=== PATIENT | male | born 1950 | race Caucasian/White ===

== ENCOUNTER 2019-06-08 10:07 | Inpatient (IN) ==
[2019-06-08] MEDS ORDERED: ASPIRIN PO ONE (10:20)
[2019-06-08] MEDS ORDERED: ASPIRIN PR ONE (10:20)
--- NOTE | 2019-06-08 11:05 | Diag Imaging Result Doc PS360 ---
EXAM: CHEST-2 VIEWS INDICATION: sob TECHNIQUE: 2 views COMPARISON: 05/08/2019 FINDINGS: There is a severe airspace consolidation involving the left upper lobe and left lower lobe. There is milder airspace consolidation in the right upper lobe. This indicates pneumonia. There is no discrete pleural fluid collection or pneumothorax. Cardiac silhouette is grossly unremarkable. IMPRESSION: Bilateral multilobar pneumonia, worse on the left. Electronically signed by Mario Gunter 06/08/2019 11:03 AM
[2019-06-08 11:56] LABS: BASO# 0.01 X1000 (0.0-0.2); BASO% 0.1 % (0.0-0.8); EOS# 0.03 X1000 (0.0-0.7); EOS% 0.3 % (0.0-10.0); HEMATOCRIT 20.4 % (42.0-52.0); HEMOGLOBIN 6.7 g/dL (14.0-18.0); IMM GRAN# 0.02 X1000 (0.0-0.04); IMM GRAN% 0.2 % (0.0-0.5); LYMPH# 0.54 X1000 (1.2-3.4); LYMPH% 5.2 % (20.5-51.1); MCH 28.6 PG (27-31); MCHC 32.8 g/dL (33-37); MCV 87.2 FL (81-99); MONO# 0.64 X1000 (0.11-0.59); MONO% 6.2 % (1.7-9.3); MPV 12.4 FL (7.4-10.4); NEUT# 9.11 X1000 (1.4-6.5); PLT 170 X1000 (130-400); RBC 2.34 XMIL (4.7-6.1); RDW 14.3 % (11.5-14.5); WBC 10.35 X1000 (4.8-10.8)
[2019-06-08 11:58] LABS: INR 1.3; PROTIME 16.4 Seconds (11.0-16.0)
[2019-06-08 11:59] LABS: PTT 42.3 Seconds (22.3-41.8)
[2019-06-08] MEDS ORDERED: DOXYCYCLINE PO ONE (12:18)
[2019-06-08] MEDS ORDERED: ROCEPHIN 2 GM in NS 50 ML IV ONE ×2 (12:18→13:30)
[2019-06-08 12:19] LABS: ALB/GLOB RATIO 1.5; ALBUMIN 3.5 g/dL (3.5-5.0); CALCIUM 7.8 mg/dL (8.8-10.2); CREATININE 4.1 mg/dL (0.7-1.2); POTASSIUM 4.8 mmol/L (3.5-5.1); TOTAL BILIRUBIN 0.8 mg/dL (0.20-1.00); TOTAL PROTEIN 5.8 g/dL (6.3-8.3)
[2019-06-08] MEDS ORDERED: NS 0 ML ONE (12:49)
[2019-06-08] MEDS ORDERED: TYLENOL PO ONE (13:12)
[2019-06-08] MEDS ORDERED: NS 500 ML IV ONE (14:01)
[2019-06-08] MEDS ORDERED: NS 1,000 ML IV ONE (14:01)
[2019-06-08] MEDS ORDERED: TYLENOL PO PRN (14:06)
[2019-06-08 14:19] LABS: IRON SATURATION 13 %; TIBC 207 ug/dL; TOTAL IRON 27 ug/dL (53-167); UNBOUND IRON 180 ug/dL (112-346)
[2019-06-08 14:36] LABS: URINE SOURCE CLEAN CATCH
[2019-06-08 14:39] LABS: FERRITIN 1283 ng/mL (30-400)
--- NOTE | 2019-06-08 14:41 | PROVIDER DOCUMENTATION ---
This chart was entered by Shalini Manuel Scribe, acting as scribe for Abel Quiles MD. HPI-Respiratory General - General Chief Complaint: Shortness of Breath Stated Complaint: ABNORMAL LABS,LOW OXGEN Time Seen by Provider: 06/08/19 12:04 Source: patient Allergies/Adverse Reactions: Patient Allergies Allergy/AdvReac Type Severity Reaction Status Date / Time Penicillins Allergy HIVES Verified 06/08/19 11:46 Home Medications: Home Medication List Medication Instructions Recorded Confirmed Last Taken Type Carvedilol 2 tab PO DAILY 06/08/19 06/08/19 Unknown History Losartan Potassium [Cozaar] 100 mg PO DAILY 06/08/19 06/08/19 Unknown History ROSUVAstatin [Crestor] 1 tab PO QHS 06/08/19 06/08/19 Unknown History - History of Present Illness-Resp Nature of Presenting Problem: 68 y/o male presents to ED with cough, hemoptysis, SOB, and chills onset last night. Pt reports he began seeing Dr. Garg in April for anemia and he has had 3 iron transfusions over the past [address] Garg found "an autoimmune disorder," but he does not have an official diagnosis yet. Pt reports he recently lost 18-19 lbs, but that he "did this on purpose." Pt denies any recent hospitalizations. Pt is alert and oriented. Quality of Pain: reports: none Severity in ED: reports: moderate Onset/Duration: reports: last night Timing: reports: still present Context: reports: other Exposure: reports: unknown cause Cough Quality/Degree: reports: productive cough, blood streaked sputum Episode Frequency: no prior episodes Current Respiratory Medication Therapy: Initiated see nurses note Modifying Factors: improves with: nothing Associated Symptoms: reports: cough, fever/chills, shortness of breath, short of breath, other (hemoptysis) Similar Symptoms Previously?: No Recently seen or treated by another doctor?: No Review of Systems - Adult - REVIEW OF SYSTEMS - ADULT Constitutional: reports: chills. denies: fever Eyes: reports: no symptoms reported Ears, Nose, Mouth & Throat: reports: no symptoms reported Cardiovascular: denies: chest pain, palpitations Respiratory: reports: cough, hemoptysis, shortness of breath Gastrointestinal: denies: abdominal pain, diarrhea, nausea, vomiting Genitourinary: reports: no symptoms reported Musculoskeletal: denies: back pain, joint pain Integumentary: reports: no symptoms reported Neurological: denies: dizziness/vertigo, seizure Psychiatric: reports: no symptoms reported Endocrine: reports: no symptoms reported Hematologic/Lymphatic: reports: no symptoms reported Allergic/Immunologic: reports: no symptoms reported All Other Systems: Reviewed and Negative Past History - Adult - PAST MEDICAL HISTORY-ADULT Review of Records: reports: Old Records Reviewed, Nursing Assessment Review, Medications Reviewed Major Childhood Illnesses: reports: denies history Cardiovascular: reports: HTN Endocrine/Immune: reports: anemia - PRIOR SURGERIES/PROCEDURES Surgical/Procedure History: reports: joint replacement (TKR) - IMMUNIZATION STATUS Childhood Immunizations: See Nurse Assessment Flu Vaccine: See Nurse Assessment - FAMILY HISTORY Family History: reviewed, not pertinent - SOCIAL HISTORY Smoking: non-smoker Substance Use: none/never Alcohol Use Frequency: never Living Situation: family Physical Exam-General - PHYSICAL EXAM-ADULT Initial Vital Signs Reviewed: Yes - CONSTITUTIONAL General Appearance: appears well, alert, no apparent distress - EYES Eyes: PERRL/EOMI, pink conjunctivae - HEAD, EARS, NOSE, MOUTH & THROAT HENMT: normocephalic/atraumatic, moist mucous membranes, normal ENT inspection - NECK Neck: non-tender, full range of motion - RESPIRATORY Respiratory: chest non-tender, lungs clear, decreased breath sounds (on the R) - CARDIOVASCULAR Cardiovascular: normal peripheral pulses, regular rate, rhythm - GASTROINTESTINAL (ABDOMEN) Abdominal Exam: normal bowel sounds, non tender, soft - MUSCULOSKELETAL Back Exam: normal inspection, no CVA tenderness, no vertebral tenderness Extremity: normal range of motion, non-tender, normal gait - SKIN Integumentary: normal color, warm/dry - NEUROLOGIC Neurologic: grossly normal - PSYCHIATRIC Psych/Mental Status: normal mood/affect, normal thought content, normal thought process, oriented x 3 - HEART Score HEART Score: History: Slightly Suspicious HEART Score: ECG: Normal HEART Score: Age: > or = 65 Years HEART Score: Risk Factors for Atherosclerotic Disease: 1 or 2 Risk Factors HEART Score: Troponin: < or = Normal Limit Total HEART Score:: 3 Progress - PLAN OF CARE/RESULTS Progress/Plan/Lab Results: Vital Signs - 8 hr 06/08/19 10:16 06/08/19 11:16 06/08/19 11:30 Temperature 98.1 F Pulse Rate 79 79 Respiratory Rate 20 21 Blood Pressure 170/67 154/74 O2 Sat by Pulse Oximetry 93 L 97 06/08/19 11:41 06/08/19 11:54 06/08/19 12:01 Temperature 100.7 F H Pulse Rate 81 81 81 Respiratory Rate 19 28 H 19 Blood Pressure 158/79 156/68 O2 Sat by Pulse Oximetry 96 97 98 06/08/19 12:37 06/08/19 13:01 06/08/19 13:21 Temperature 99.1 F Pulse Rate 78 74 Respiratory Rate 22 23 Blood Pressure 156/73 149/77 O2 Sat by Pulse Oximetry 97 98 Laboratory Results - last 24 hr 06/08/19 06/08/19 06/08/19 10:57 10:57 10:57 WBC 10.35 RBC 2.34 L Hgb 6.7 L Hct 20.4 L MCV 87.2 MCH 28.6 MCHC 32.8 L RDW Std Deviation 14.3 Plt Count 170 MPV 12.4 H Immature Gran % (Auto) 0.2 Neut % (Auto) 88.0 H Lymph % (Auto) 5.2 L [place] % (Auto) 6.2 Eos % (Auto) 0.3 Baso % (Auto) 0.1 Immature Gran # (Auto) 0.02 Neut # (Auto) 9.11 H Lymph # (Auto) 0.54 L [place] # (Auto) 0.64 H Eos # (Auto) 0.03 Baso # (Auto) 0.01 PT INR PTT (Actin FS) Sodium 138 Potassium 4.8 Chloride 104 Carbon Dioxide 19 L Anion Gap 15 BUN 48 H Creatinine 4.1 H Estimated GFR/1.73 m2 14 BUN/Creatinine Ratio 12 Glucose 119 H Calculated Osmolality 289 Calcium 7.8 L Total Bilirubin 0.80 AST 25 ALT 20 Alkaline Phosphatase 69 Creatine Kinase 76 Troponin T Xlg-N-Egkdokkeavp Pept 4776 H Total Protein 5.8 L Albumin 3.5 Globulin 2.3 Albumin/Globulin Ratio 1.5 06/08/19 06/08/19 10:57 10:57 WBC RBC Hgb Hct MCV MCH MCHC RDW Std Deviation Plt Count MPV Immature Gran % (Auto) Neut % (Auto) Lymph % (Auto) [place] % (Auto) Eos % (Auto) Baso % (Auto) Immature Gran # (Auto) Neut # (Auto) Lymph # (Auto) [place] # (Auto) Eos # (Auto) Baso # (Auto) PT 16.4 H INR 1.30 PTT (Actin FS) 42.3 H Sodium Potassium Chloride Carbon Dioxide Anion Gap BUN Creatinine Estimated GFR/1.73 m2 BUN/Creatinine Ratio Glucose Calculated Osmolality Calcium Total Bilirubin AST ALT Alkaline Phosphatase Creatine Kinase Troponin T < 0.010 Hwm-R-[place] Pept Total Protein Albumin Globulin Albumin/Globulin Ratio Orders Category Date Time Status Cardiac Monitoring DIRECTED Care 06/08/19 10:20 Active Oxygen Therapy- ED Nursing DIRECTED Care 06/08/19 10:20 Active Saline Loc NOW Care 06/08/19 10:20 Active Regular Diet Diet 06/08/19 13:26 Active CHEST-2 VIEWS [RAD] Stat Exams 06/08/19 10:20 Completed BLOOD CULTURE [BLDCUL] Stat Lab 06/08/19 12:37 Received CBC WITH ELECTRONIC DIFF [HEME] Stat Lab 06/08/19 10:57 Completed CK PROFILE [SP CHEM] Stat Lab 06/08/19 10:57 Completed COMPREHENSIVE METABOLIC PANEL [CHEM] Stat Lab 06/08/19 10:57 Completed PRO B-NATRIURETIC PEPTIDE Stat Lab 06/08/19 10:57 Completed PROTIME WITH INR [COAG] Stat Lab 06/08/19 10:57 Completed PTT [COAG] Stat Lab 06/08/19 10:57 Completed TROPONIN T Stat Lab 06/08/19 10:57 Completed 0.9% Sodium Chloride Inj [Ns] 50 ml Med 06/08/19 12:49 Discontinued .ROUTE As directed Acetaminophen [Tylenol] Med 06/08/19 13:12 Discontinued 650 mg PO NOW ONE Aspirin Med 06/08/19 10:20 Discontinued 300 mg NH NOW ONE Aspirin Med 06/08/19 10:20 Discontinued 325 mg PO NOW ONE CefTRIAXONE [Rocephin] 2 gm Med 06/08/19 13:30 Active 0.9% Sodium Chloride Inj [Ns] 50 ml IV NOW Doxycycline Med 06/08/19 12:18 Discontinued 100 mg PO NOW ONE CP/SOB/Palp >45 yrs of Age Stat Oth 06/08/19 10:20 Ordered EKG [EKG] Stat Ther 06/08/19 10:20 Ordered Result Diagrams: 06/08/19 10:57 06/08/19 10:57 - EKG 1 Time of EKG reading by physician:: 10:48 EKG Read and Signed by:: Abel Quiles EKG Interpretation (*Must complete 3 of following elements*): Normal Rate: 87 Rhythm: NSR [place]: normal QRS: normal [place] Interval: normal ST Wave: normal - XRAY 1 XRAY Study: Chest Impression: See EMR Report ([facility] - [address] , [address], [place] [address] [facility] - [address] [place] [address] Department of Imaging Patient: SIMONA DA SILVA Date: 06/08/19#: [id number] : 8ADM Status: PRE ERAcct#: [id number] Age/Sex: 68/MRoom/Bed: Loc: ED Ordering Physician: Abel Quiles MD Family Physician: Simon Grant MD Reason for Procedure: sob Signed EXAM: CHEST-2 VIEWS INDICATION: sob TECHNIQUE: 2 views COMPARISON: 05/08/2019 FINDINGS: There is a severe airspace consolidation involving the left upper lobe and left lower lobe. There is milder airspace consolidation in the right upper lobe. This indicates pneumonia. There is no discrete pleural fluid collection or pneumothorax. Cardiac silhouette is grossly unremarkable. IMPRESSION: Bilateral multilobar pneumonia, worse on the left. Electronically signed by Mario Gunter 06/08/2019 11:03 AM 06/08/19 1103 Interpreting Physician: Mario Gunter MD Dictated Date/Time: 06/08/19 1102 cc: Abel Quiles MD; Simon Grant MD) - CONSULTS/PCP/HOSPITALIST Notification #1 *Consult/PCP/Hospitalist*: NARA Lawson for hospitalist Time Discussed: 13:28 Consult Disposition: Admit Departure - Departure Date of Disposition Decision: 06/08/19 Time of Disposition Decision: 13:44 DIAGNOSIS: Community acquired pneumonia Qualifiers: Laterality: unspecified laterality Qualified Code(s): J18.9 - Pneumonia, unspecified organism Disposition: ADMITTED INPATIENT 09 Certified Medical Emergency: Emergent Condition: Stable Referrals and Follow-Ups: Simon Grant MD [Primary Care Provider] - - Critical Care Note This patient required my direct & personal management of CC.: No Attestation - Physician/ SONIA Attestation Patient care was provided by Advanced Practice Provider:: No The physician spent face to face time with patient:: Yes Advanced Practice Provider documentation review:: Supervising physician onsite and consulted in the evaluation and care of this patient. The physician did have a face to face encounter with the patient. This chart was documented by the indicated scribe, (Shalini Manuel, Vanna) and accurately reflects the services I performed and decisions made by me, Abel Quiles MD, as attested by the provider's signature.
[2019-06-08 14:43] LABS: BILIRUBIN URINE NEGATIVE (NEGATIVE); BLOOD URINE LARGE (NEGATIVE); COLOR YELLOW; GLUCOSE URINE NEGATIVE (NEGATIVE); KETONE URINE NEGATIVE (NEGATIVE); LEUKOCYTES URINE NEGATIVE (NEGATIVE); NITRITE URINE NEGATIVE (NEGATIVE); PROTEIN URINE 70 mg/dL (NEGATIVE); SP GRAVITY URINE 1.013; TURBIDITY URINE CLEAR (CLEAR); UROBILINOGEN URINE NORMAL (NORMAL)
[2019-06-08 14:45] LABS: UR EPITHELIAL CELLS <10 /HPF (<10); URINE BACTERIA NEGATIVE /HPF; URINE RBC TNTC /HPF (<10); URINE WBC <10 /HPF (<10)
[2019-06-08 14:50] LABS: UR CREAT RANDOM 75.1 mg/dL (14-26)
--- NOTE | 2019-06-08 14:53 | Diag Imaging Result Doc PS360 ---
EXAM: CT THORAX W/O CONTRAST INDICATION: sob; pna; weight loss TECHNIQUE: This exam was performed using automated exposure control, adjustment of mA or kV according to patient size, and/or use of iterative reconstruction technique. COMPARISON: None. FINDINGS: There is very dense airspace consolidation seen throughout a majority of the left lung and a large part of the right upper lobe. There is milder patchy consolidation involving the right lower lobe and right middle lobe. There is a small to moderate-sized right pleural effusion and a small left effusion. There is trace pericardial fluid. The heart is borderline prominent. There are calcified mediastinal and hilar lymph nodes indicating prior granulomatous disease. There are several other borderline and mildly prominent noncalcified mediastinal lymph nodes that are probably reactive. Limited views of the upper abdomen are essentially unremarkable. IMPRESSION: 1.Severe bilateral multilobar pneumonia, worse on the left. 2.Small to moderate-sized right pleural effusion and small left effusion. 3.Other incidental/nonacute findings detailed above. Electronically signed by Mario Gunter 06/08/2019 2:51 PM
[2019-06-08] MEDS: DUONEB (A & A) INH SCH ×3 (15:48→23:16)
[2019-06-08] MEDS: SOLU-MEDROL IV SCH (16:33)
[2019-06-08] MEDS ORDERED: ASPIRIN ONE (16:40)
[2019-06-08 16:54] LABS: RETIC% 1.24 % (0.8-2.1); RETIC-HE 35.3 PG (28.2-36.6)
[2019-06-08 17:01] LABS: IRON SATURATION 12 %; LDH 162 U/L (135-225); TIBC 163 ug/dL; TOTAL IRON 20 ug/dL (53-167); UNBOUND IRON 143 ug/dL (112-346)
--- NOTE | 2019-06-08 17:17 | HISTORY AND PHYSICAL ---
PRIMARY CARE PROVIDER: Dr. Grant. CHIEF COMPLAINT: Cough, run down, body aches, and hemoptysis. HISTORY OF PRESENT ILLNESS: Mr. 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 Gutierrez at [facility], iron deficiency anemia, he has had 3 iron transfusions in the last three weeks. He is being followed up for an unknown autoimmune disorder. He has been monitored by Dr. Hinton for CKD stage 3 since December; he was diagnosed with CKD. Apparently must have seen Dr. Hinton last month, in April. He also states that he was on 2 weeks' worth of minoxidil and it caused him to have lower extremity edema and facial edema. He has been taken off that and has been off of it for a little less than a week, but continues to have the edema. Prior to taking the minoxidil he had about four weeks where he worked out really hard, was eating very healthy, and lost 18 pounds. When he took the minoxidil he gained 10 pounds of fluid weight within 2 weeks. He states that on Sunday night he started having constant sneezing and then yesterday, which was Sunday, he started having coughing, felt run down with body aches, and had some mild hemoptysis starting around 10 p.m. last night. He went to urgent care this morning who found him to be mildly hypoxic, about 91% on room air. He was placed on 2 L nasal cannula. They got blood work which revealed a 7 and 20 on his hemoglobin and hematocrit and was sent here. He is 6 and 20 on his hemoglobin and hematocrit. He is not dizzy or lightheaded. He denies having shortness of breath. Imaging here reveals that he has severe bilateral multilobar pneumonia, worse on the left. Small to moderate-sized right pleural effusion and small left effusion. There are several borderline, mildly prominent, noncalcified mediastinal lymph nodes that are reactive to the pneumonia. He is going to receive blood, will have several consults. Will monitor on the floor and will evaluate for any further interventions. PAST MEDICAL HISTORY: 1. Bigeminy, followed by Dr. Gutierrez, defense travel administrator in [place]. 2. Iron deficiency anemia with 3 iron infusions in the last 3 weeks, followed by Dr. Garg. 3. CKD stage 3, recent diagnosis in December, followed by Dr. Hinton. 4. Currently in a workup for autoimmune disorders and is supposed to follow up with Dr. Mcdaniels, mounting machine operator in [place]. 5. Hyperlipidemia. PAST SURGICAL HISTORY: 1. Bilateral cataracts. 2. Foreign body removal from the left leg. 3. Left knee arthroscopy. 4. Left knee total knee replacement. SOCIAL HISTORY: Denies tobacco, alcohol, or illicit drug use. 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 Gets around really well and actually works out frequently at the gym. FAMILY HISTORY: Mother had no medical conditions. Father had stroke and heart disease. ALLERGIES: Penicillin but he is unclear of what the reaction is. Apparently he was told as a young child by his mother not ever take penicillin. HOME MEDICATIONS: 1. Crestor 10 mg p.o. nightly. 2. Carvedilol 12.5 mg p.o. daily. 3. Cozaar 100 mg p.o. daily. REVIEW OF SYSTEMS: Fourteen point review of systems are complete and all are negative except for those mentioned above in HPI. PHYSICAL EXAMINATION: VITAL SIGNS: Temperature 98.6 degrees, heart rate 83, respiratory rate 18, blood pressure 150/76, O2 saturation 96% on 2 L nasal cannula. GENERAL: Noah Chambers is a 68-year-old male who is in no acute distress. He is able answer questions appropriately. HEENT: Atraumatic, normocephalic. Pupils equal, round, reactive to light. Extraocular movements intact. Mucous membranes are moist. He does have some facial edema underneath the eyes with an imprint of the nasal cannula. NECK: Trachea midline. CARDIOVASCULAR: S1, S2. Regular rate and rhythm. No rubs, gallops, murmurs. He has 1 to 2+ lower extremity pitting edema. He has +2 dorsalis pedal pulses, +2 radial pulses. Negative for JVD or carotid bruits. PULMONARY: Coarse throughout. Rhonchi throughout, primarily on the left. You can still hear it on the right as well, anteriorly and posteriorly. Tolerating 2 L nasal cannula. GI: Soft, nontender, nondistended. Positive bowel sounds x4. EXTREMITIES: Moves all extremities equally. Full range of motion. NEUROLOGIC: A O x3. Follows commands. Sensory is intact. SKIN: Warm, dry, intact. LABORATORY DATA: White blood cells 10,000, hemoglobin 6, hematocrit 20, platelet count 170,000. INR is 1.30. Sodium 138, potassium 4.8, BUN 48, creatinine is 4.1, glucose 119, calcium 7.8. Iron 27, total iron binding capacity is 207, ferritin is 1,283. Bilirubin 0.80, AST 25, ALT 20. CK 76. Troponin less than 0.01. ProBNP 4,776. Albumin 3.5. Urinalysis 70 protein, large blood, too numerous to count red blood cells. Urine creatinine 75.1, urine sodium 63, urine urea 475. IMAGING: Chest x-ray: Bilateral multilobar pneumonia, worse on the left. Chest CT: Severe bilateral multilobar pneumonia, worse on the left. Small to moderate-sized right pleural effusion. Small left effusion and some reactive mediastinal lymph nodes. ASSESSMENT AND PLAN: 1. Community-acquired pneumonia, left greater than right, multilobar. He has p.r.n. oxygen. He is currently on 2 L. Antibiotic coverage consists of aztreonam and Zyvox. He will have some low-dose steroids, 20 IV Solu-Medrol twice a day, albuterol Atrovent nebs, along with budesonide nebs. Pulmonary has been consulted. 2. Acute kidney injury on chronic kidney disease stage 3. Dr. Hinton was consulted. Going to hold the Cozaar for now. Urine labs ordered. Renal ultrasound ordered. 3. History of bigeminy. He is not currently in bigeminy. He is on Coreg for his bigeminy. He does have lower extremity edema and puffiness in his face, so we are going to get an echocardiogram to evaluate the heart function. 4. Hyperlipidemia. Continue Crestor. 5. Iron deficiency anemia. He is currently asymptomatic but his hemoglobin hematocrit are 6 and 20 and he has been getting iron infusions the last 3 weeks. So we are going to give him 2 units of blood and consult Dr. Garg, he has been following him. 6. Apparently he is been getting followed up for some sort of autoimmune disorder that he is unable to tell us what it is. 7. Deep venous thrombosis prophylaxis. SCDs. Dictated by NARA Kwan for Marv Jarquin MD Addendum: Patient seen and examined by myself. Agree with NARA note. It reflects my assessment and plan. Patient is being admitted to hospital for CAP. Will start broad spectrum antibiotics. For worsening renal failure will consult Dr. Hinton from Nephrology. For anemia will transfuse two units of blood and will consult Hem-Onc. cc: NARA Kwan MD [facility]
[2019-06-08 17:36] LABS: FERRITIN 1169 ng/mL (30-400)
[2019-06-08 18:25] LABS: URINE SOURCE CATH
[2019-06-08 18:30] LABS: BILIRUBIN URINE NEGATIVE (NEGATIVE); BLOOD URINE LARGE (NEGATIVE); COLOR YELLOW; GLUCOSE URINE NEGATIVE (NEGATIVE); KETONE URINE NEGATIVE (NEGATIVE); LEUKOCYTES URINE NEGATIVE (NEGATIVE); NITRITE URINE NEGATIVE (NEGATIVE); PH URINE 6.5; PROTEIN URINE 50 mg/dL (NEGATIVE); SP GRAVITY URINE 1.011; TURBIDITY URINE CLEAR (CLEAR); UROBILINOGEN URINE NORMAL (NORMAL)
[2019-06-08 18:32] LABS: UR EPITHELIAL CELLS <10 /HPF (<10); URINE BACTERIA NEGATIVE /HPF; URINE RBC TNTC /HPF (<10); URINE WBC <10 /HPF (<10)
--- NOTE | 2019-06-08 18:41 | EKG Report ---
Test Performed on : 06/08/2019 10:48:49 AM Test Reason : SOB Blood Pressure : / mmHG Vent. Rate : 087 BPM Atrial Rate : 087 BPM P-R Int : 174 ms QRS Dur : 088 ms QT Int : 342 ms P-R-T Axes : 072 045 049 degrees QTc Int : 411 ms Normal sinus rhythm. Normal ECG When compared with ECG of 23-AUG-2015 09:28, No significant change was found Unconfirmed Result
[2019-06-08] MEDS: AZACTAM 1 GM in NS 50 ML IV SCH (18:45)
[2019-06-08] MEDS: ZYVOX 600 MG/D5W 600 MG/300 ML IVPB IV SCH (19:25)
[2019-06-08] MEDS: PULMICORT INH SCH (19:38)
--- NOTE | 2019-06-08 21:32 | Diag Imaging Result Doc PS360 ---
EXAM: US RENAL 2 (RETROPER) COMPLETE INDICATION: natalio TECHNIQUE: COMPARISON: None. FINDINGS: The kidneys are somewhat echogenic, which is a nonspecific indicator of medical renal disease. No solid renal mass or hydronephrosis is identified. The right kidney measures 10.1 cm and the left kidney measures 10.2 cm in the greatest longitudinal axes. The right renal cortex measures 0.8 cm and the left renal cortex measures 0.8 cm in thickness. There is a Bustos catheter in the urinary bladder and the bladder is nondistended. IMPRESSION: Increased renal cortical echotexture, which is a nonspecific indicator of medical renal disease. Electronically signed by Mario Gunter 06/08/2019 9:29 PM
[2019-06-08] MEDS: CRESTOR PO SCH (21:55)
[2019-06-09] MEDS: SOLU-MEDROL IV SCH (03:27)
[2019-06-09] MEDS: ZYVOX 600 MG/D5W 600 MG/300 ML IVPB IV SCH ×2 (03:27→18:34)
[2019-06-09] MEDS: AZACTAM 1 GM in NS 50 ML IV SCH ×2 (03:28→17:05)
[2019-06-09] MEDS: DUONEB (A & A) INH SCH ×6 (07:30→23:16)
[2019-06-09] MEDS: PULMICORT INH SCH ×3 (07:30→21:31)
[2019-06-09 08:14] LABS: BASO# 0.01 X1000 (0.0-0.2); BASO% 0.1 % (0.0-0.8); HEMOGLOBIN 7.6 g/dL (14.0-18.0); IMM GRAN# 0.02 X1000 (0.0-0.04); IMM GRAN% 0.2 % (0.0-0.5); LYMPH# 0.46 X1000 (1.2-3.4); LYMPH% 4.9 % (20.5-51.1); MCV 84.9 FL (81-99); MONO# 0.23 X1000 (0.11-0.59); MONO% 2.5 % (1.7-9.3); MPV 12.2 FL (7.4-10.4); NEUT# 8.64 X1000 (1.4-6.5); NEUT% 92.3 % (42.2-75.2); PLT 136 X1000 (130-400); RBC 2.71 XMIL (4.7-6.1); RDW 14.5 % (11.5-14.5); WBC 9.36 X1000 (4.8-10.8)
[2019-06-09 08:33] LABS: ALB/GLOB RATIO 1.1; ALBUMIN 3.1 g/dL (3.5-5.0); CALCIUM 7.8 mg/dL (8.8-10.2); CREATININE 3.4 mg/dL (0.7-1.2); POTASSIUM 4.8 mmol/L (3.5-5.1); TOTAL BILIRUBIN 0.46 mg/dL (0.20-1.00); TOTAL PROTEIN 5.8 g/dL (6.3-8.3)
[2019-06-09] MEDS ORDERED: ROCEPHIN 1 GM in NS 50 ML IV SCH (09:00)
[2019-06-09 09:07] LABS: BANDS 4 % (0-1); LYMPHS 10 % (21-51); MONO 2 % (1-9); SEGS 84 % (42-75)
[2019-06-09 09:08] LABS: LARGE PLATELETS 1+
--- NOTE | 2019-06-09 09:08 | PROVIDER PROGRESS NOTE ---
Progress Note Additional Pulmonary Note: CT reviewed, effusion is small for drainage. Continue antibiotics and medical treatment. Will follow imaging.
--- NOTE | 2019-06-09 09:32 | Diag Imaging Result Doc PS360 ---
EXAM: CHEST-2 VIEWS HISTORY: Pneumonia TECHNIQUE: Chest two views COMPARISON: 06/08/2019 FINDINGS: Persistent dense infiltrates in the left lung with no improvement. Worsening dense infiltrates in the right lung. No cardiomegaly. Tiny effusions. IMPRESSION: Worsening pneumonia Electronically signed by Addy Rivera 06/09/2019 9:30 AM
[2019-06-09] MEDS: COREG PO SCH (10:28)
[2019-06-09 10:29] LABS: INR 1.34; PROTIME 16.8 Seconds (11.0-16.0); PTT 38.2 Seconds (22.3-41.8)
[2019-06-09 11:02] LABS: URINE SOURCE VOIDED
[2019-06-09 11:11] LABS: BILIRUBIN URINE NEGATIVE (NEGATIVE); BLOOD URINE LARGE (NEGATIVE); COLOR STRAW; GLUCOSE URINE NEGATIVE (NEGATIVE); KETONE URINE NEGATIVE (NEGATIVE); LEUKOCYTES URINE TRACE (NEGATIVE); NITRITE URINE NEGATIVE (NEGATIVE); PH URINE 6.5; PROTEIN URINE 200 mg/dL (NEGATIVE); SP GRAVITY URINE 1.008; TURBIDITY URINE CLEAR (CLEAR); UROBILINOGEN URINE NORMAL (NORMAL)
[2019-06-09 11:12] LABS: UR EPITHELIAL CELLS <10 /HPF (<10); URINE BACTERIA NEGATIVE /HPF; URINE RBC <10 /HPF (<10); URINE WBC <10 /HPF (<10)
[2019-06-09 11:52] LABS: UR CREAT RANDOM 41.6 mg/dL (14-26); UR PROT RANDOM 27.1 mg/dL
[2019-06-09] MEDS ORDERED: LASIX IV ONE ×2 (11:56→22:51)
[2019-06-09] MEDS ORDERED: LASIX 100 MG in NS 25 ML IV ONE (12:30)
--- NOTE | 2019-06-09 12:39 | PROGRESS NOTE ---
DATE: 06/09/2019 SUBJECTIVE: Patient reports still having cough and body aches. but no hemoptysis noted. OBJECTIVE: Vital Signs: Temperature 97.8, heart rate 80, respiratory rate 20, blood pressure 168/83, and O2 saturation 95% on 2 L nasal cannula. General: This is a chronically ill-appearing 68-year-old male lying in bed in no acute distress. Cardiovascular: S1, S2 heard. No murmurs, gallops, or rubs. Regular rate and rhythm. HEENT: The patient has some facial edema underneath the eye with nasal cannula. Neck: No JVD noted. No carotid bruits. No lymphadenopathy. No thyromegaly. Respiratory: Coarse breath sounds noted in both pulmonary basurto mostly noted on the left. The patient is not using any accessory muscles or having work of breathing. Abdomen: Soft. Nontender to palpation. Bowel sounds present. No organomegaly. Extremities: No clubbing, cyanosis, or edema. Peripheral pulses present in both legs. Neurological: Patient is alert and oriented x3. Moves 4 extremities. LABORATORY DATA: White cell count 9.36, hemoglobin 7.6, hematocrit 23.0 and platelets 136,000 with creatinine 3.4. Sodium 134. ASSESSMENT/PLAN: 1. Community-acquired pneumonia, multilobar pneumonia. Actually, patient is on Zyvox on aztreonam. Pulmonary has been consulted. They do not think we need to do any thoracentesis because of the lower amount of pleural effusion. We will continue to monitor. Patient is also on Solu-Medrol 20 mg IV q.12 hours 2. Acute on chronic kidney disease. Dr. Hinton was consulted, and he decided to proceed with renal biopsy today. We will continue to monitor him and follow recommendations. 3. Hyperlipidemia. We will continue Crestor. 4. Iron deficiency anemia. Patient is asymptomatic, but hemoglobin has been found to be very low of 6.5 so he received 2 units of blood already, but his hemoglobin has improved just minimally from 6.7 to 2.2. We will continue to monitor. 5. Autoimmune disorder. Patient has been seen by Dr. Garg in the office. The patient will be seen by Dr. Garg here in the hospital. He has been consulted. cc: Marv Jarquin MD
--- NOTE | 2019-06-09 15:09 | NEPHROLOGY CONSULTATION ---
DATE: 06/09/2019 REASON FOR ADMISSION: Hemoptysis associated with cough, feeling rundown with body aches . CONSULTING PHYSICIAN: Dr. Lovelace. REASON FOR CONSULT: Acute kidney injury. HPI: Mr. Chambers is a 68-year-old white male who is recent new patient to our facility, was seen in our office on 05/20/2019 with known chronic renal insufficiency followed by his primary care physician, Dr. rGant. At that time patient's creatinine had been slightly elevated. He showed positive for proteinuria in our office. We had scheduled patient back with complement studies, 24 hour urine and a renal ultrasound. Unfortunately, patient had been referred to Dr. Garg and had received 3 infusions for iron in the last 3 weeks for an unknown autoimmune disorder. The patient has also been followed by Dr. Gutierrez, program control analyst for intermittent bigeminy. Prior to his office visit Dr. Grant has been treating him for elevated blood pressure and had placed him on minoxidil. Patient had swelling with some type of a rash to a right ankle which was improving at the time of his office visit after being taken off his minoxidil. The patient states he has no problems with his blood pressure at this time. He does admit to a weight loss of approximately 18 pounds over the last month to month and a half. States that his swelling has still not improved. Patient admits that on Sunday morning he started coughing, felt rundown, body aches, had mild hemoptysis starting around 10 p.m., on Sunday evening presented to Urgent Care at which time he was referred to [facility] Emergency Department for an SpO2 saturation 91% on room air. His blood work revealed a hemoglobin of 7, hematocrit of 20. He denied any fever or chills, denied any nausea, vomiting or diarrhea. Positive for chronic lower extremity swelling that is slowly improving after stopping his minoxidil. The patient had imaging which revealed severe bilateral multilobular pneumonia worse on the left, small to moderate sized right pleural effusions and small left effusion. He had a several borderline mildly prominent noncalcified mediastinal lymph nodes with questionable reaction to his pneumonia. Patient was subsequently admitted for further monitoring and evaluation. He was to receive blood and have evaluation for workup for acute kidney injury. Upon admission it was noted that his BUN was 48 and creatinine of 4.1, his potassium was stable at 4.8. The patient's initial hemoglobin was 6.7, now up to 7.8 after 2 units. Renal ultrasound shows that his right kidney measures 10.1, left measures 10.2. Bustos catheter is in place. He has adequate urine output. Denies any complaints except for weakness and occasional cough at this time. PAST MEDICAL HISTORY: [place]icho darlin followed by Dr. Gutierrez, program control analyst in [place], iron deficiency anemia with 3 recent iron infusions in the last [address] Garg, chronic renal insufficiency stage 3B with recent diagnosis seen in our office approximately 2 weeks ago on May 20 with workup in progress. PAST SURGICAL HISTORY: Bilateral cataracts, foreign body removal from left flank, left knee arthroscopy, left knee total knee replacement. SOCIAL HISTORY: He has family who is attentive to his care. His son is at his bedside. Denies tobacco, alcohol or illicit drug use. 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 ALLERGIES: Listed as penicillin. He has unknown reaction. FAMILY HISTORY: Father had a stroke and heart disease. Mother has no medical conditions. HOME MEDICATIONS: Crestor, carvedilol, Cozaar. REVIEW OF SYSTEMS: Times 10 with pertinent positives listed above in the HPI. Patient's most recent vital signs temperature 98.5 degrees, blood pressure 140/70, heart rate 71, respirations 17, he is on 2 L nasal cannula, last recorded saturation 97%, he has had 3800 in, 1200 out to Bustos catheter. LABS: Patient's most recent labs, sodium is 134, potassium 4.8, chloride 104, CO2 17, BUN 48, creatinine 3.4, glucose is 178. White count 9.36, hemoglobin 7.6, hematocrit 23, platelet count 136,000. Patient had a pro time of 16.8, INR 1.34, PTT 38.2. His anion gap is 13, calcium is 7.8, albumin of 3.1. Urinalysis shows positive proteinuria, large blood, trace leukocytes on urine dipstick. Sputum culture is currently pending. PHYSICAL EXAMINATION: This is a 68-year-old white male who appears chronically ill though no acute distress. His skin is warm and dry.HEENT: Normocephalic, atraumatic. Conjunctiva is pale, he has [place]. Mucous membranes are dry. Neck: Supple, trachea midline. He has positive JVD with positive hepatojugular reflux. Cardiovascular: Regular rate and rhythm. He has a systolic murmur present. Lungs: Have diffuse coarse breath sounds, faint bibasilar crackles. Remains on O2 equal excursion. Abdomen: Soft, nontender, positive bowel sounds. Genitourinary: Not inspected. Bustos catheter is in place. Extremities: Have 2+ edema. No rashes or lesions evident. ASSESSMENT AND PLAN: 1. Acute kidney injury on chronic kidney disease stage 3B. Baseline creatinine in our office 2 weeks ago was in the mid 2 level range. BUN this morning was 48 with a creatinine of 4.1. Adequate urine output documented. Renal ultrasound is essentially negative. 2. Proteinuria. The patient has possible signs of vasculitis. We will schedule a renal biopsy today CT-guided, hemoglobin to start is 7.6 initial had dropped to 7.2. The patient has been on Solu-Medrol 20 mg q.12 hours. We will give him 3 large loading doses of Solu-Medrol 500 mg x3 doses for over 3 days. We will check renal complements, QUINCY, ANCA, SPEP, hepatitis profile, glomerular basement membrane studies and a 24 hour urine. We will await these results. In the meantime we are working the patient up for vasculitis associated with his hemoptysis to rule out Micha syndrome. 3. Electrolytes and acid-base balance. These are acceptable. 4. Anemia. Hemoglobin of 7.2. The patient received 2 units of packed red blood cells on his admission. We will continue to monitor status post renal biopsy, hemoglobins every 4 hours. 5. Pneumonia versus vasculitis with Micha disease. Again we are checking a renal biopsy. Continue current renal dosed antibiotics. Continue Solu-Medrol. Like to thank you for allowing us to follow with this patient. Dictated by NARA Rowan for Tho Hinton MD Face to face encounter, data reviewed, discussed with Marialuisa Ferrer on 06/10/19. I agree with the above assessment and plan of care. cc: NARA Rowan MD [facility]
--- NOTE | 2019-06-09 17:31 | ECHO REPORT ---
ORDER DATE: 06/08/2019 ECHOCARDIOGRAPHIC MEASUREMENTS: 1. Interventricular septum 1.1. 2. Left ventricular posterior wall 1.1. 3. Diastolic diameter 5.8 cm. 4. Left ventricular systolic diameter 3.6 cm. 5. Aorta 3.1 cm. 6. Left atrium 4.9 cm. SUMMARY OF THE TWO-DIMENSIONAL IMAGIN. Aortic valve leaflets are trileaflet. 2. Pulmonic valve was normal. 3. Tricuspid valve was normal. 4. Mitral valve leaflets appeared to be normal. 5. There is left atrial enlargement. 6. There is severe mitral regurgitation. Would recommend transesophageal echocardiogram to evaluate the mitral valve. 7. Peak velocity across the aortic valve less than 2 m/sec. There is no aortic stenosis or regurgitation. 8. There is mild tricuspid regurgitation. Peak velocity across the tricuspid valve was 4 m/sec. 9. Pulmonary artery systolic pressure of 75 mmHg. 10. There is pulmonary arterial hypertension. 11. There is no aortic stenosis or regurgitation. 12. IVC was dilated at 2.7 cm. 13. Normal left ventricular cavity size. Estimated ejection fraction of 65%. There is diastolic dysfunction grade 2. 14. Trace anterior echo-free space suggestive of pericardial fat pad or trivial effusion. There is no evidence of tamponade. 15. There is no obvious intracardiac mass or thrombus. cc: MD Lulu Gage CRNP
--- NOTE | 2019-06-09 19:07 | HEMO/ONC CONSULTATION ---
DATE: 06/09/2019 REFERRING PHYSICIAN: Dr. Lovelace. REASON FOR REFERRAL: Anemia, known to our service. HISTORY OF PRESENT ILLNESS: Mr. Noah Chambers is a very pleasant 68-year-old man with a history of anemia, iron deficiency, chronic kidney disease, hyperlipidemia, bigeminy who presented to [facility] with complaints of hemoptysis, body aches and coughing. He is a new patient to our office and is undergoing workup for his anemia. He has received 3 doses of Injectafer IV, last dose was given on June 04. We also have him set up to start Retacrit for anemia of chronic renal disease. Upon further workup at [facility], he was found to have pneumonia bilaterally as well as a small moderate sized right pleural effusion and small left effusion. He is being admitted for further workup. The patient reports that Dr. Hinton saw him this morning and felt that he may have some vasculitis. There are plans for a renal biopsy to rule this out. The Hematology-Oncology service has been placed on consult to provide further workup and treatment options. PAST MEDICAL HISTORY: As mentioned in HPI. Coronary artery disease, hypertension, dyslipidemia and diabetes mellitus type 2. PAST SURGICAL HISTORY: 1. Left knee arthroscopy. 2. Bilateral cataracts. 3. Left total knee replacement. SOCIAL HISTORY: The patient denies smoking, alcohol or illicit drug use. FAMILY HISTORY: Negative for malignancies or hematological disorders. ALLERGIES: Penicillin. MEDICATIONS: As per medication sheet. REVIEW OF SYSTEMS: As per HPI. Otherwise a 12-point review of systems was negative. PHYSICAL EXAMINATION: General: The patient appears to be in no apparent distress. He is sitting quietly in his hospital bed with family and friends at bedside. Vital Signs: Blood pressure 168/83, pulse 80, respirations 20, temperature 97.8 degrees Fahrenheit, O2 saturation 95% on 2 L nasal cannula. HEENT: Head normocephalic, atraumatic. Mucosa is pink and moist. Pupils reactive to light. Oropharynx clear. Neck: Supple. No lymphadenopathy or thyromegaly. Cardiovascular: S1, S2. Regular rate and rhythm. No murmurs noted. Respiratory: Breath sounds clear auscultation bilaterally. No rhonchi, rales or wheezing noted. Gastrointestinal: Soft, nontender, nondistended, positive for bowel sounds. Neurologic: Normal gait . Skin: Slightly jaundiced. LABORATORY DATA: Total white blood cell count 9.36, hemoglobin 7.2, hematocrit 23, platelet count 136,000, ANC 8.4, sodium 134, potassium 4.8, chloride 104, BUN 48, creatinine 3.4, glucose 178, percent retic 1.24, iron 20, iron saturation percent 12, TIBC 163, ferritin 1169, LDH 162, B12 868. Blood cultures currently pending. Sputum culture currently pending. ASSESSMENT AND PLAN: 1. Anemia secondary to iron deficiency as well as anemia of chronic renal disease. He is status post Injectafer intravenous x3 doses, last dose was given on 06/04/2019. He is scheduled to start red Retacrit as outpatient. Dr. Hinton is also following the patient and plans for renal biopsy to rule out vasculitis. The patient did have a positive occult stool test in our office on 06/03/2019. We will consult GI for further evaluation. 2. Community acquired pneumonia. We agree with antibiotic coverage and O2 support as well as Pulmonary and primary care team. Sputum cultures are pending. 3. Acute on chronic kidney disease. We agree with consulting Dr. Hinton and agree with present management as per his recommendations. 4. Positive QUINCY. This was found in our office. We have referred him to Dr. Mcdaniels, fitter tacker for further workup and recommendations. Thank you for this consult and allowing us to take part in the care of this patient. We will follow along with you. Further recommendations to follow. Dictated by NARA Mensah for Rigo Garg MD cc: Rigo Garg MD
--- NOTE | 2019-06-09 19:38 | CONSULTATION ---
DATE OF CONSULTATION: 06/09/2019 REQUESTING PROVIDER: Dr. Marv Smith. REASON FOR CONSULTATION: Bilateral pneumonia. HISTORY OF PRESENT ILLNESS: This is a 68-year-old male with a medical history of bigeminy, iron deficiency anemia, chronic kidney disease stage 3, unknown autoimmune disease, hyperlipidemia, hypertension, left knee degenerative joint disease. He presented to the ER yesterday morning with dry cough, hemoptysis, shortness of breath for 2 days, and one episodes of fever. Initial workup revealed severe bilateral multilobar pneumonia, severe anemia, and acute on chronic kidney disease. He has been admitted to the medical floor for further evaluation and management. Currently, patient is lying in bed on nasal cannula at 2 L with no acute distress noted. The patient's is at the bedside. The patient reported that he started with a severe dry cough on Sunday, and later he started to have some blood-streaked sputum. He had one episode of fever at 100.5 degrees at home, and he feels chills all the time chronically because of anemia. He reported that he had taken some blood pressure medicine which caused face and bilateral lower extremity edema recently. He reported he intentionally lost weight before the blood pressure medicine, and he lost about 18 pounds. However, after taking the blood pressure medicine, he gained over 10 pounds within 2 weeks. He reports no wheezing, headache, dizziness, nausea, vomiting, constipation, diarrhea, or urination discomfort, chest pain, or palpitation. He did have some soreness around his chest because of severe cough recently. He states generally he is feeling a lot better and he is waiting for renal biopsy at this time per Dr. Hinton and Dr. Hinton told him that he may have vasculitis rather than pneumonia. PAST MEDICAL HISTORY: 1. Bigeminy, followed by Dr. Baum in [place]. 2. Iron deficiency anemia, status post 3 iron infusions in the past 3 weeks, followed by Dr. Garg. 3. Chronic kidney disease stage 3, recently diagnosed in this December, followed up by Dr. Hinton outpatient. 4. Unknown autoimmune disorder, followed by Dr. Mcdaniels in [place]. 5. Hyperlipidemia. 6. Hypertension. 7. Left knee degenerative joint disease, status post left total knee replacement on 08/24/2015. PAST SURGICAL HISTORY: 1. Bilateral cataracts. 2. Foreign body removal from the left leg. 3. Left total knee replacement, as mentioned in the Past Medical History. SOCIAL HISTORY: The patient is and lives at home with his . He has no history of tobacco, alcohol or illicit drug use. FAMILY HISTORY: Positive for stroke and heart disease. ALLERGIES: Penicillin. REVIEW OF SYSTEMS: A 10-point review of systems was conducted and the pertinent is listed within the HPI, otherwise noncontributory. PHYSICAL EXAMINATION: Vital Signs: Temperature 97.8 degrees, blood pressure 168/83, pulse 80, respiratory rate 20, oxygen saturation 95% on nasal cannula at 2 L. General: Well developed, well nourished, very calm and cooperative, lying in the bed with his at the bedside. HEENT: Atraumatic, normocephalic. Trachea midline. Mucosa pink and moist. Respiratory: Even and unlabored. Symmetrical excursion. Auscultation revealed diminished breathing sounds bibasilarly and only inspiratory crackles bibasilarly. Cardiovascular: Regular rate and rhythm. Gastrointestinal: Soft, nontender, nondistended. Normoactive bowel sounds in all 4 quadrants. Extremities: Bilateral lower extremity 1 to 2+ pitting edema, worse around the thigh area and worse around the lam area. Neurologic: Alert and oriented x3. Speech fluent. Follows commands. LAB DATA: Hemoglobin 7.2. Sodium 134, potassium 4.8, chloride 104, carbon dioxide 17, BUN 48, creatinine 3.4, glucose 178. IMAGING DATA: CT on 06/08/2019 showed severe bilateral multilobar pneumonia, worse on the left, small to moderate sized right pleural effusion, and small left effusion. He has pericardial fluid, calcified mediastinal and hilar lymph nodes, indicating pregranulomatous disease, several other borderline and mildly prominent noncalcified mediastinal lymph nodes, probably reactive. ASSESSMENT: This is a 68-year-old male, with a medical history of bigeminy, iron deficiency anemia, recently diagnosed, chronic kidney disease stage 3, unknown autoimmune disorders, hyperlipidemia, hypertension, and left knee degenerative joint disease. He has been admitted to the medical floor since yesterday with community-acquired pneumonia, acute kidney injury on chronic kidney disease stage 3, and significant iron deficiency anemia. 1. Acute hypoxic respiratory failure, secondary to severe bilateral multilobar pneumonia vs. vasculitis. 2. Severe bilateral multilobar pneumonia vs. vasculitis. 3. Small to moderate sized right pleural effusion and small left effusion. 4. Acute on chronic kidney disease. 5. Severe iron deficiency anemia. PLAN: 1. Continue supplemental oxygen as needed. 2. Continue on antibiotic, IV steroid and bronchodilators. 3. Dr. Bangura already reviewed CT. Pleural effusions are small for drainage. Will follow up with imaging after antibiotic and medical treatment. 4. Follow up with arterial blood gases, CBC, sputum culture, blood culture, and chest x-ray. 5. Dr. Hinton and Dr. Garg on board. 6. Further recommendations pending hospital course. Thank you for the courtesy of this consult. Dictated by NARA Stanford for Nelson Bangura MD cc: NARA Stanford MD [facility]
[2019-06-09 21:10] LABS: INR 1.26
[2019-06-09 21:11] LABS: PTT 35.2 Seconds (22.3-41.8)
[2019-06-09] MEDS: CRESTOR PO SCH (21:43)
[2019-06-09] MEDS ORDERED: LASIX ONE (23:10)
[2019-06-09] MEDS ORDERED: ATIVAN IV ONE (23:47)
[2019-06-10] MEDS: AZACTAM 1 GM in NS 50 ML IV SCH ×2 (00:04→08:26)
[2019-06-10] MEDS: ZYVOX 600 MG/D5W 600 MG/300 ML IVPB IV SCH (02:26)
[2019-06-10] MEDS: PULMICORT INH SCH (07:45)
[2019-06-10] MEDS ORDERED: LASIX IV SCH (07:45)
[2019-06-10] MEDS: DUONEB (A & A) INH SCH ×2 (07:45→11:30)
[2019-06-10 07:51] LABS: ALLEN TEST YES; BE -2.6 mmoll (-3.0-3.0); BLOOD TYPE ARTERIAL; HCO3-(ACT) 22.7 mmoll (20.0-26.0); O2(CT) 10.6 mL/dL (15.0-23.0); PCO2(98.6) 32 mmHg (35-45); SAMPLE BLOOD; SAO2 87.8 % (95.0-100.0); THB 8.8 g/dL (11.5-17.4); pH(98.6) 7.43 (7.35-7.45)
[2019-06-10 07:53] LABS: MODALITY VENTIMASK; O2HB 85.3 % (95.0-99.0); PO2(98.6) 48 mmHg (60-100)
[2019-06-10] MEDS: COREG PO SCH (08:26)
[2019-06-10] MEDS ORDERED: SOLU-MEDROL IV SCH (09:00)
[2019-06-10] MEDS ORDERED: LASIX 100 MG in NS 25 ML IV SCH (09:00)
[2019-06-10 09:40] LABS: HEPATITIS PROFILE ACUTE SEE COMMENTS
[2019-06-10 10:46] LABS: HEMATOCRIT 21.6 % (42.0-52.0); HEMOGLOBIN 7.2 g/dL (14.0-18.0)
--- NOTE | 2019-06-10 12:37 | Diag Imaging Result Doc PS360 ---
EXAM: CHEST-PORTABLE 06/10/2019 HISTORY: hypoxia TECHNIQUE: AP portable upright at 1227 COMMENT: There is worsening diffuse alveolar opacity bilaterally compared to 06/09/2019. IMPRESSION: Florid pulmonary edema/ARDS. Electronically signed by Renan Prasad 06/10/2019 12:34 PM
[2019-06-10] MEDS ORDERED: ATIVAN IV PRN (12:39)
[2019-06-10 13:32] LABS: UR CREATININE 21.8 mg/dL (14-26); UR PROTEIN 19.9 mg/dL
[2019-06-10] MEDS ORDERED: SODIUM CHLORIDE 0.9% 10 ML ONE (13:38)
[2019-06-10 13:39] LABS: UR CREATININE TOTAL 998.4 mg/24 (800-1800)
[2019-06-10 13:53] VITALS: BP 142/77
--- NOTE | 2019-06-10 15:18 | PULMONOLOGY CONSULTATION ---
DATE: 06/10/2019 HISTORY OF PRESENT ILLNESS: Mr. Chambers is a 68-year-old white male, a never smoker, who reports excellent health until earlier this year. The patient had an increase in creatinine, and was referred to Dr. Hinton by Dr. Grant. The patient did have some blood in his urine. The patient was being considered for a renal biopsy. The patient's creatinine at the end of 2014 was normal. The patient's has rheumatoid arthritis, and he did discuss his case with Dr. Sergio Mcdaniels. He has an appointment scheduled for rheumatology evaluation 06/24/2019, but he has not yet had his initial visit and no laboratory work has been performed. The patient felt well until Sunday afternoon when he developed some sneezing. On the following day, he developed a progressive cough with some bloody sputum. He had had a low-grade fever. He presented to the emergency room 06/08/2019 with hemoptysis and low-grade temperature elevation. He may have had a chill. He denies shortness of breath prior to presentation but, has had some dyspnea during this admission. PAST MEDICAL HISTORY: 1. History of bigeminy, but no coronary artery disease. 2. Acute/chronic renal insufficiency with workup in progress. 3. Bilateral cataract surgery. 4. Status post left knee replacement. 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 No alcohol or tobacco use. He has an active aerobic program. FAMILY HISTORY: Notable for heart disease and strokes. REVIEW OF SYSTEMS: As noted in the HPI. PHYSICAL EXAMINATION: General: Reveals a well-developed, well-nourished male who appears his stated age. He has mild work of breathing. Vital Signs: BP 162/84, heart rate 91, respiratory rate 35, and oxygen saturation 98% on non-rebreather. HEENT: Pupils are equal and reactive. Oropharynx is clear. No nasal lesions identified. Chest: Reveals crackles bilaterally. Cardiac: Increased rate and regular rhythm. Abdomen: Soft without hepatosplenomegaly. Extremities: Without edema. LABORATORIES: CT scan of the thorax reveals diffuse ground-glass infiltrates throughout the left lung and more patchy on the right. There is a small right-sided pleural effusion. Evidence of prior granulomatous disease. Hemoglobin on admission 6.7. He has received 2 units of blood along with fresh frozen plasma. Current hemoglobin 7.2. Arterial blood gas this morning on Ventimask: A pH 7.43, pCO2 of 32 and PO2 of 48. Sodium 134, potassium 4.8, chloride 104, bicarbonate 17, BUN 48, creatinine 3.4. C3 levels slightly reduced at 70, C4 levels borderline low at 10. Hepatitis panel nonreactive. UA on 3 different urinalysis reveals large amount of blood. Echocardiogram 06/08/2019 reveals severe mitral regurgitation with a PA systolic pressure of 75 mmHg. D-dimer is elevated at 3.49. Sedimentation rate elevated at 65. IMPRESSION: A 68-year-old with 1. Hemoptysis. 2. Acute hypoxemic respiratory failure. 3. Hematuria. 4. Anemia. 5. Acute renal failure. 6. Moderate pulmonary hypertension. 7. Severe mitral regurgitation. DISCUSSION: A complicated patient with findings as outlined above. The patient reports his symptoms have progressed this year. With his rapid progression of renal failure, hemoptysis with radiographic consistency of diffuse alveolar hemorrhage, elevation in sedimentation rate, and elevation in D-dimer, I suspect that he has a vasculitis. However, his D-dimer is only slightly elevated and his sedimentation rate only slightly elevated, and these would expect to be higher in vasculitis. His mitral regurgitation is further complicating the diagnosis. I think it is unlikely that his severe mitral valve disease is explaining his current presentation. It would not explain his ability to exercise last week without dyspnea. It would not explain the acute renal failure without evidence of hypotension, and it would not explain his hematuria or anemia. I will discuss the case with Dr. Tho Hinton. We have a low threshold to intubate and pursue renal biopsy, echocardiogram, or both. Initial discussion with Dr. Hinton indicates plasmapheresis may be pursued. We will have to decide do we pursue aggressive evaluation of the diagnosis at this facility or at a tertiary facility. PLAN: 1. Continue oxygen for acute hypoxemic respiratory failure. 2. Transfuse as needed to keep hemoglobin above 7. 3. Continue pulse dose steroids. 4. Await vasculitic profile studies which may take several days. 5. SHIRA and/or renal biopsy as outlined above. 6. Prognosis is guarded. cc: Brian Horton MD
--- NOTE | 2019-06-10 19:06 | GASTROENTEROLOGY CONSULTATION ---
DATE: 06/10/2019 REASON FOR CONSULTATION: Anemia, Hemoccult-positive stool, sunday Garg. HISTORY OF PRESENT ILLNESS: This is a 68-year-old male who has seen Dr. Garg recently for a new diagnosis of anemia. Patient has had 3 doses of IV iron, with the last dose being on 06/04/2019. They were also working to start him on Retacrit for anemia of chronic renal disease. Patient has followed with Dr. Hinton for chronic kidney disease. There has been question of possible vasculitis since his admission. A renal biopsy has been ordered. The patient has denied any evidence of blood in the stool or black stools. He has reported cough with shortness of breath. He has come in for further evaluation and found to have pneumonia. He is also found to have worsening renal function and is following with Dr. Hinton. He has been seen by Dr. Garg for anemia, iron deficiency. Patient has denied any GI symptoms of reflux or heartburn. He is not on an antireflux medicine at home. He denies nausea, but had a recent episode of vomiting. By our records, he had a colonoscopy in May 2012 that showed a polyp in the splenic flexure, hyperplastic polyp. Again, at this time, patient has denied any evidence of active GI bleeding. He is anemic on admission. Hemoglobin and hematocrit were 6.7 and 20.4, today 7.2 and 21.6. PAST MEDICAL HISTORY: 1. History of bigeminy, followed with Dr. Gutierrez, his orthotics prosthetics technician in [place]. 2. Iron-deficiency anemia, followed by Dr. Garg. 3. Chronic kidney disease, followed by Dr. Hinton. 4. Apparently, autoimmune disorder, that is being worked up by Dr. Mcdaniels, Immunology, in [place]. 5. Hyperlipidemia. PAST SURGICAL HISTORY: 1. Bilateral cataract surgery. 2. Foreign body removal from left leg. 3. Left knee arthroscopy. 4. Left knee total knee replacement. 5. Last colonoscopy 2011, showing hyperplastic colon polyp. ALLERGIES: Penicillin, causing hives. HOME MEDICATIONS: 1. Carvedilol 2 tablets daily. 2. Losartan 100 mg daily. 3. Crestor 1 tablet every night. SOCIAL HISTORY: He is . Denies tobacco or alcohol use. 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 REVIEW OF SYSTEMS: Per History of Present Illness PHYSICAL EXAMINATION: Vital Signs: Temperature 99.6 degrees, pulse 78, respirations 32, blood pressure 145/84. General: Patient is awake and alert. He does have some shortness of breath noted. He has a Ventimask in place. Respiratory: Some crackles noted. Cardiovascular: Regular rate and rhythm. Abdomen: Soft, nontender. Positive bowel sounds. Extremities: Some lower extremity edema noted. Neurological: Patient is awake, alert, oriented to person, place, and time. LABORATORY: Hematology: WBC 9.36, hemoglobin 7.2, hematocrit 21.6, MCV 84.9, platelets 136,000. Pro-time 16.0, INR 1.26, PTT 35.2, D-dimer 3.49. Chemistry: Sodium 134, potassium 4.8, chloride 104, CO2 17, BUN 48, creatinine 3.4, glucose 178, calcium 7.8. Iron 20, TIBC 163, percent saturation 12, ferritin 1169, total bilirubin 0.46, AST 20, ALT 15, alkaline phosphatase 64, LDH 162. Troponin less than 0.010. C-reactive protein 114.28. Total protein 5.8, albumin 3.1. Urinalysis did show a large amount of blood in the urine. ASSESSMENT AND PLAN: 1. Pneumonia, on antibiotics. 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 They are waiting on a renal biopsy when patient is stable enough to proceed. 2. Acute kidney injury versus chronic kidney disease, following with Dr. Hinton. 3. Anemia, iron deficiency. Patient has received intravenous iron infusions as an outpatient by Dr. Garg. He did have Hemoccult-positive stool. The patient had a colonoscopy in 2011. Once the patient is stable enough, would proceed with further workup for iron-deficiency anemia, including esophagogastroduodenoscopy, but at this present time, we will hold off and wait until patient is more stable and other workup has been completed. We will continue to follow along and further plans will be made according to his progress. I have discussed this case with Dr. Bucio. Thank you for this consultation. Dictated by NARA Johnson for Yusef Bucio MD cc: NARA Sandoval MD
--- NOTE | 2019-06-10 19:38 | NEPHROLOGY PROGRESS NOTE ---
DATE: 06/10/2019 DATE SEEN: 06/10/2019 TIME SEEN: 0710 SUBJECTIVE: Mr. Chambers is resting quietly in bed head. His head of the bed is elevated. He has had respiratory distress during the entire night. He is now currently on 50% partial non- rebreather. We have ordered stat ABGs. The patient states that he has been coughing hemoptysis type bloody clots during the night. His daughter is at his bedside. OBJECTIVE: His most recent vital signs is temperature is 99.2 degrees, blood pressure 166/88, heart rate is 100. His respirations are 28. 50% partial non-rebreather. Last recorded saturation is 81% on room air. He comes up to 92% on his face mask. He has had 1976 in and 4600 out to Bustos catheter. LABORATORY DATA: The patient has labs that are currently pending. His last creatinine was 4. Last hemoglobin of 7.2. PHYSICAL EXAMINATION: General: This is a 68-year-old white male who appears critically ill. He is in respiratory distress. ABGs stat are currently pending. We have requested he be sent to ICU for further monitoring and observation. We have spoken with Dr. Sveta montilla a.mDuy requesting his assistance in his respiratory status. The patient has positive JVD. Skin: Warm and dry. HEENT: Normocephalic, atraumatic. Conjunctiva is pale. Mucous membranes are dry. Cardiovascular: Regular rate and rhythm. He has a systolic murmur. Lungs: Have crackles bilateral 1/3 up. Remains on O2 support. Abdomen: Slightly distended, nontender. Positive bowel sounds. Genitourinary: Not inspected. Bustos catheter is in place with adequate urine out. Extremities: Have no edema. No clubbing or cyanosis. Neurological: He is alert and oriented x3. DIAGNOSTIC DATA: The patient had an echocardiogram performed yesterday showing severe mitral regurgitation with a recommendation for a SHIRA to evaluate mitral valve, ejection fraction of 65%. The patient has increased systolic arterial and start pulmonary artery pressure with mild tricuspid regurg. We have put in a request for Cardiology with Dr. Yoandy montilla a.m. We have also put in a request per Dr. Horton per patient's family request. ASSESSMENT AND PLAN: 1. Acute kidney injury. Patient's creatinine remains elevated at 4. The patient's SPEP came back with positive monoclonal bands, IgG kappa present. He has a low complement C3-C4. We still have further workup pending. We had discussed possible renal biopsy this morning secondary to patient's respiratory distress. We have called and canceled this. He continues to put out adequate urine output. 2. Electrolytes and acid-base balance. These had been stable. These are currently pending this a.m. 3. Anemia, this has remained stable with a hemoglobin of 7.2. The patient had INR of 1.26 with a PTT 35.2 and a PT of 16 yesterday. D-dimer elevated at 3.49 this a.m. 4. Pneumonia. The patient is currently on renal dosed antibiotics followed by Pulmonology and the primary care team. 5. Fluid volume overload. We have ordered Lasix 100 mg IV x2 doses today. We continue with methylprednisolone 500 mg IV x3 bags, 2nd dose given today. He remains on Zyvox and Azactam. I would like to thank you for allowing us to follow with this patient. I made arrangement and had him transferred to [facility] in case he requires plasmaphoresis. rg Dictated by NARA Rowan for Tho Hinton MD Face to face encounter, data reviewed, discussed with Marialuisa Ferrer on 06/10/19. I agree with the above assessment and plan of care. rg cc: NARA Rowan MD [facility]
[2019-06-10 22:17] LABS: ANTINEUTROPHIL CYTOPLASMIC AB SEE COMMENTS; CYTOPLASMIC NEUTROPHILIC AB SEE COMMENTS
--- NOTE | 2019-06-11 09:59 | DISCHARGE SUMMARY ---
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 HISTORY: Briefly this is a 68-year-old male who came in with shortness of breath. He has a history of bigeminy, mitral valve prolapse, chronic kidney failure stage III. Dr. Hinton is following him. He was placed on Minoxidil for blood pressure control and gained weight apparently. He came in with a hemoglobin and hematocrit of 6 and 20 and what was felt to be multilobar pneumonia. He was placed on aztreonam and Zyvox. Pulmonary was consulted. Acute kidney injury. Dr. Hinton was consulted because his creatinine was 4.1 with iron deficiency anemia. He was given 2 units of blood. They had been seeing Dr. 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 Pulmonary was consulted Nephrology was concerned about possibly vasculitis with proteinuria. He was recommending a renal biopsy. Complement levels were assayed his C3 was low. Reportedly, QUINCY was positive as an outpatient, but we repeated it. None of that data is back of course and glomerular basement membrane. There was concern over polyangiitis with granulomatosis, concern over Micha's syndrome and that he would needed to be transferred someplace where he could get plasmapheresis and that this was not indeed pneumonia. On the he developed progressive shortness of breath though he had florid pulmonary edema versus ARDS. His chest CT on admission showed bilateral multilobar pneumonia with a moderate-size right pleural effusion. Echocardiogram showed an EF of 65%. He did have severe mitral regurg with recommendations for a SHIRA and he had grade 2 diastolic dysfunction. In any case with his progressive shortness of breath Dr. Horton was consulted. 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 Dr. Bangura had seen him earlier and recommended initially we were going to transfer to [place] for evaluation but they were on diversion, so subsequently was transferred to [place] for further management, biopsy and possible need for plasmapheresis. Day of transfer he was placed on Lasix high dose and high-dose methylprednisone. LABORATORY DATA: Other labs again are pending. His most recent hemoglobin and hematocrit is 7 and 21. D-dimer was elevated, PaO2 48. He is on 100%. CRP is 114. His serum protein electrophoresis showed he did have a monoclonal IgG kappa but that is unclear significance right now as far as acute multiple myeloma. His urine protein was not that high, total was only 911. His glomerular basement membrane antibody was normal. His complement level was low C3 but C4 was low normal and his hepatitis panel was negative. DISPOSITION: Further management per [facility]. cc: MD Tho Wilder MD Adnan A. Seljuki, MD
== END 2019-06-10 13:40 | disposition short-term general hospital (02) | DRG 542 ==
LOC: ED 10:07 → 3N 15:12 → SUATTDRO 15:12 → ICU 06-10 09:39
PROVIDERS: ATTEND Internal Medicine